=== PATIENT | male | born 1975 | race Caucasian/White ===

== ENCOUNTER 2020-11-12 18:46 | Emergency (ER) | payer BC, OTHER ==
[~2020-11-12] VITALS: Ht 182.9 cm; Wt 77.1 kg
[2020-11-12] MEDS ORDERED: ONDANSETRON HCL 4 MG/2 ML VIAL IV ONE (19:00)
[2020-11-12] MEDS ORDERED: MORPHINE SULFATE 4 MG/ML SYR/VIAL IV ONE ×2 (19:00→22:15)
[2020-11-12] MEDS ORDERED: MORPHINE SULFATE 4 MG/ML SYR/VIAL ONE (21:40)
[2020-11-12 22:30] VITALS: BP 138/90
== END 2020-11-13 05:12 | disposition home or self-care (01) ==
LOC: ER 18:46
DX: S70.12XA Contusion of left thigh, initial encounter (principal); V86.56XA Driver of dirt bike or motor/cross bike injured in nontraffic accident, initial encounter; Y93.89 Activity, other specified; Y92.89 Other specified places as the place of occurrence of the external cause; Y99.8 Other external cause status
CPT/HCPCS: 72192; 73552; 96374; 96375; 99284; J2270; J2405

== ENCOUNTER 2025-10-25 17:25 | Emergency (ER) | payer SELFPAY ==
[~2025-10-25] VITALS: Ht 182.9 cm; Wt 80.2 kg
[2025-10-25 17:28] VITALS: BP 148/91; PULSE 92; RESP 18; TEMP 98; O2SAT 96
== END 2025-10-25 20:36 | disposition left against medical advice (07) ==
LOC: ER 17:25
DX: M25.522 Pain in left elbow (principal); M25.512 Pain in left shoulder; Z53.21 Procedure and treatment not carried out due to patient leaving prior to being seen by health care provider; Z04.1 Encounter for examination and observation following transport accident